=== PATIENT | female | born 1940 | race Caucasian/White ===

== ENCOUNTER 2016-07-11 09:37 | Inpatient (IN) | payer OTHER ==
[~2016-07-11] VITALS: Ht 154.9 cm; Wt 118.8 kg
[~2016-07-11 09:37] MED LIST: CLEOCIN300 MG PO; DOXYCYCLINE HY100 MG PO; FLEXERIL10 MG PO; HCTZ; HYDROCHLOROTHIA25 MG PO; HYDROCHLOROTHIA50 MG; HYDROCODON-ACE1 EACH; LASIX40 MG PO; LISINOPRIL20 MG PO; METOPROLOL TART50 MG PO; NAPROSYN500 MG; NEOSPORIN + P14.2 GM TP; NEXIUM40 MG PO; NORVASC10 MG PO; TOPROL XL50 MG PO; TRAMADOL HCL50 MG PO; ULTRAM50 MG PO; VALACYCLOVIR1000 MG; VICODIN 5-3001 EACH PO
[2016-07-11 12:51] LABS: HEMATOCRIT 29.1 % (36.0-46.0); MCH 24.1 PG (29.0-34.0); MCHC 32.3 G/DL (30.0-36.0); MCV 74.6 FL (83-99); MEAN PLAT.VOLUME 10.1 uM^3 (9.5-12.4); PLATELET COUNT 397 K/uL (156-360); RBC DIS.WIDTH-CV 17.9 % (11.8-14.6); RBC DIS.WIDTH-SD 46.9 % (39-53); WHITE BLOOD COUNT 15.5 K/uL (4.1-10.2)
[2016-07-11 13:01] LABS: INTER. NORMALIZED RATIO 1.1; PROTHROMBIN TIME 11.2 (9.2-11.2); PTT 33.6 (25-32)
[2016-07-11 13:02] LABS: CHLORIDE 109 mEq/L (99-109); POTASSIUM 4.8 mEq/L (3.7-5.4); SODIUM 138 mEq/L (136-147)
[2016-07-11 13:04] LABS: GLUCOSE 70 mg/dL (70-99)
[2016-07-11 13:05] LABS: ANION GAP 12 MEQ/L (2-14)
[2016-07-11 13:08] LABS: GFR ESTIMATE (CALCULATED) 31 mL/min/
[2016-07-11 13:09] LABS: UREA NITROGEN (BUN) 33 mg/dL (9-23)
[2016-07-11] MEDS ORDERED: LISINOPRIL10 MG PO (15:13)
[2016-07-11] MEDS ORDERED: HYDROCHLOROTHIA25 MG PO (15:14)
[2016-07-11] MEDS ORDERED: TRAMADOL HCL50 MG PO (15:15)
[2016-07-11] MEDS ORDERED: NEXIUM40 MG PO (15:15)
[2016-07-11] MEDS ORDERED: CLARITIN,ALAVAR10 MG PO (15:16)
[2016-07-11] MEDS ORDERED: FLUTICASONE PRO16 GM BOTH NARES (15:16)
[2016-07-11 21:32] VITALS: BP 127/88
[2016-07-12 03:12] LABS: ADD MIUA? YES; BILIRUBIN NEGATIVE; BLOOD TRACE; COLOR YELLOW ((YELLOW)); GLUCOSE (STRIP) NEGATIVE; KETONES NEGATIVE; LEUKOCYTES TRACE; NITRITE NEGATIVE; PROTEIN (STRIP) 30; SPECIFIC GRAVITY 1.014 (1.000-1.030); UROBILINOGEN 0.2 MG/DL (0.2-1.0)
[2016-07-12 03:39] LABS: RED BLOOD CELLS 0-5 /HPF (0-5); WHITE BLOOD CELLS 0-5 /HPF (0-5)
[2016-07-12 03:40] LABS: BACTERIA NONE SEEN; CASTS NONE SEEN /LPF; CRYSTALS NONE SEEN; EPITHELIAL CELLS 1+; MUCUS 1+; UCUL ADDED? NO
[2016-07-12 04:01] VITALS: BP 132/87
[2016-07-12 06:17] LABS: HEMATOCRIT 29.4 % (36.0-46.0); MCH 23.5 PG (29.0-34.0); MCHC 31.3 G/DL (30.0-36.0); MCV 75.2 FL (83-99); MEAN PLAT.VOLUME 9.8 uM^3 (9.5-12.4); PLATELET COUNT 394 K/uL (156-360); RBC DIS.WIDTH-CV 17.6 % (11.8-14.6); RBC DIS.WIDTH-SD 47.7 % (39-53); RED BLOOD COUNT 3.91 M/uL (3.80-5.20); WHITE BLOOD COUNT 14.8 K/uL (4.1-10.2)
[2016-07-12 06:21] LABS: EOSINOPHIL COUNT 0.3 K/uL (0-0.3); IMMATURE GRANULOCYTE (%) 0.3 % (0.0-0.7); IMMATURE GRANULOCYTE COUNT 0.1 K/uL; LYMPHOCYTE COUNT 1.5 K/uL (1.0-2.8); MONOCYTE (%) 9.1 % (3-12); MONOCYTE COUNT 1.4 K/uL (0-0.8); NEUTROPHIL COUNT 11.5 K/uL (1.8-6.4)
[2016-07-12 06:42] LABS: Estimated Average Glucose 123 mg/dL (70-123); HEMOGLOBIN A1c (GLYCOHEMOGLOB) 5.9 % HGB (Below 5.7)
[2016-07-12 06:45] LABS: ANION GAP 15 MEQ/L (2-14); CHLORIDE 105 MEQ/L (99-109); GFR ESTIMATE (CALCULATED) 36 mL/min/; GLUCOSE 62 mg/dL (70-99); POTASSIUM 4.7 MEQ/L (3.7-5.4); SAMPLE HEMOLYSIS CHECK 0; SAMPLE ICTERIC CHECK 0; SAMPLE LIPEMIA CHECK 0; SODIUM 140 MEQ/L (136-147); UREA NITROGEN (BUN) 27 mg/dL (9-23)
[2016-07-12 08:46] VITALS: BP 143/92
[2016-07-12 12:37] LABS: VANCOMYCIN, TROUGH 7.5 MCG/ML (10-20)
[2016-07-12 13:03] VITALS: BP 180/76
[2016-07-12 17:37] VITALS: BP 129/72
[2016-07-12 20:41] VITALS: BP 168/80
[2016-07-13 00:24] VITALS: BP 177/77
[2016-07-13 04:00] VITALS: BP 160/72
[2016-07-13 08:59] VITALS: BP 175/76
[2016-07-13 15:30] VITALS: BP 135/96
[2016-07-13 23:36] VITALS: BP 138/76
[2016-07-14 07:14] VITALS: BP 182/86
[2016-07-14 12:07] VITALS: BP 202/96
[2016-07-14 13:41] VITALS: BP 148/92
[2016-07-14 16:14] VITALS: BP 172/86
[2016-07-14 23:46] VITALS: BP 176/80
[2016-07-15 06:01] LABS: HEMATOCRIT 26.2 % (36.0-46.0); MCH 23.1 PG (29.0-34.0); MCHC 30.9 G/DL (30.0-36.0); MCV 74.9 FL (83-99); MEAN PLAT.VOLUME 9.7 uM^3 (9.5-12.4); PLATELET COUNT 341 K/uL (156-360); RBC DIS.WIDTH-CV 17.9 % (11.8-14.6); RBC DIS.WIDTH-SD 48.9 % (39-53); WHITE BLOOD COUNT 12.3 K/uL (4.1-10.2)
[2016-07-15 07:24] LABS: ANION GAP 12 MEQ/L (2-14); CHLORIDE 113 MEQ/L (99-109); GFR ESTIMATE (CALCULATED) 33 mL/min/; SAMPLE HEMOLYSIS CHECK 0; SAMPLE ICTERIC CHECK 0; SAMPLE LIPEMIA CHECK 0; SODIUM 140 MEQ/L (136-147); UREA NITROGEN (BUN) 19 mg/dL (9-23)
[2016-07-15 07:25] LABS: GLUCOSE 83 mg/dL (70-99)
[2016-07-15 08:36] VITALS: BP 160/80
[2016-07-15 16:40] VITALS: BP 158/82
[2016-07-15 23:37] VITALS: BP 184/90
[2016-07-16 06:00] LABS: HEMATOCRIT 26.2 % (36.0-46.0); MCH 23.3 PG (29.0-34.0); MCHC 30.9 G/DL (30.0-36.0); MCV 75.3 FL (83-99); MEAN PLAT.VOLUME 10.5 uM^3 (9.5-12.4); PLATELET COUNT 328 K/uL (156-360); RBC DIS.WIDTH-CV 18.2 % (11.8-14.6); RBC DIS.WIDTH-SD 49.3 % (39-53); RED BLOOD COUNT 3.48 M/uL (3.80-5.20); WHITE BLOOD COUNT 12.1 K/uL (4.1-10.2)
[2016-07-16 06:21] LABS: ANION GAP 9 MEQ/L (2-14); CHLORIDE 113 MEQ/L (99-109); GFR ESTIMATE (CALCULATED) 36 mL/min/; GLUCOSE 89 mg/dL (70-99); POTASSIUM 3.8 MEQ/L (3.7-5.4); SAMPLE HEMOLYSIS CHECK 1; SAMPLE ICTERIC CHECK 0; SAMPLE LIPEMIA CHECK 0; SODIUM 140 MEQ/L (136-147); UREA NITROGEN (BUN) 19 mg/dL (9-23)
[2016-07-16 12:06] VITALS: BP 158/78
[2016-07-17] VITALS: BP 158/96
[2016-07-17 06:27] LABS: HEMATOCRIT 25.8 % (36.0-46.0); MCH 23.5 PG (29.0-34.0); MCHC 31.4 G/DL (30.0-36.0); MCV 74.8 FL (83-99); MEAN PLAT.VOLUME 9.7 uM^3 (9.5-12.4); PLATELET COUNT 365 K/uL (156-360); RBC DIS.WIDTH-CV 18.4 % (11.8-14.6); RBC DIS.WIDTH-SD 49.7 % (39-53); RED BLOOD COUNT 3.45 M/uL (3.80-5.20); WHITE BLOOD COUNT 11.9 K/uL (4.1-10.2)
[2016-07-17 06:59] LABS: ANION GAP 13 MEQ/L (2-14); CHLORIDE 112 MEQ/L (99-109); GFR ESTIMATE (CALCULATED) 42 mL/min/; GLUCOSE 72 mg/dL (70-99); POTASSIUM 4.3 MEQ/L (3.7-5.4); SAMPLE HEMOLYSIS CHECK 0; SAMPLE ICTERIC CHECK 0; SAMPLE LIPEMIA CHECK 0; SODIUM 142 MEQ/L (136-147); UREA NITROGEN (BUN) 19 mg/dL (9-23)
[2016-07-17 07:48] VITALS: BP 137/95
[2016-07-17 20:15] VITALS: BP 183/93
[2016-07-18 00:39] VITALS: BP 186/89
[2016-07-18 04:30] VITALS: BP 122/65
[2016-07-18 04:55] VITALS: BP 189/62
[2016-07-18 05:57] VITALS: BP 126/60
[2016-07-18 05:58] LABS: ANION GAP 9 MEQ/L (2-14); CHLORIDE 112 MEQ/L (99-109); GFR ESTIMATE (CALCULATED) 39 mL/min/; GLUCOSE 87 mg/dL (70-99); POTASSIUM 3.8 MEQ/L (3.7-5.4); SAMPLE HEMOLYSIS CHECK 0; SAMPLE ICTERIC CHECK 0; SAMPLE LIPEMIA CHECK 0; SODIUM 139 MEQ/L (136-147); UREA NITROGEN (BUN) 19 mg/dL (9-23)
[2016-07-18 07:22] VITALS: BP 172/74
[2016-07-18 16:58] VITALS: BP 162/74
[2016-07-19] VITALS (7 sets, daily range): BP systolic 168–202; BP diastolic 72–100
[2016-07-19 06:30] LABS: HEMATOCRIT 26.4 % (36.0-46.0); MCH 23.7 PG (29.0-34.0); MCHC 31.1 G/DL (30.0-36.0); MCV 76.3 FL (83-99); MEAN PLAT.VOLUME 10.4 uM^3 (9.5-12.4); PLATELET COUNT 358 K/uL (156-360); RBC DIS.WIDTH-CV 19.1 % (11.8-14.6); RBC DIS.WIDTH-SD 51.8 % (39-53); RED BLOOD COUNT 3.46 M/uL (3.80-5.20); WHITE BLOOD COUNT 11.1 K/uL (4.1-10.2)
[2016-07-19 07:58] LABS: ANION GAP 13 MEQ/L (2-14); CHLORIDE 115 MEQ/L (99-109); GFR ESTIMATE (CALCULATED) 39 mL/min/; GLUCOSE 71 mg/dL (70-99); POTASSIUM 4.1 MEQ/L (3.7-5.4); SAMPLE HEMOLYSIS CHECK 0; SAMPLE ICTERIC CHECK 0; SAMPLE LIPEMIA CHECK 0; SODIUM 143 MEQ/L (136-147); UREA NITROGEN (BUN) 19 mg/dL (9-23)
[2016-07-19 15:59] LABS: ANION GAP 9 MEQ/L (2-14); CHLORIDE 114 MEQ/L (99-109); POTASSIUM 3.8 MEQ/L (3.7-5.4); SAMPLE HEMOLYSIS CHECK 0; SAMPLE ICTERIC CHECK 0; SAMPLE LIPEMIA CHECK 0; SODIUM 141 MEQ/L (136-147)
[2016-07-19 16:05] LABS: GFR ESTIMATE (CALCULATED) 42 mL/min/; GLUCOSE 86 mg/dL (70-99); UREA NITROGEN (BUN) 17 mg/dL (9-23)
[2016-07-19 16:09] LABS: TROP-I INTERPRETATION NEGATIVE; TROPONIN-I 0.05 ng/mL (0.0-0.30)
[2016-07-19 16:23] LABS: MCH 23.4 PG (29.0-34.0); MCV 75.5 FL (83-99); MEAN PLAT.VOLUME 9.7 uM^3 (9.5-12.4); PLATELET COUNT 351 K/uL (156-360); RBC DIS.WIDTH-SD 51.9 % (39-53); RED BLOOD COUNT 2.78 M/uL (3.80-5.20); WHITE BLOOD COUNT 10.4 K/uL (4.1-10.2)
[2016-07-19 16:54] LABS: BASOPHIL COUNT 0.1 K/uL (0-0.1); EOSINOPHIL (%) 6.9 % (0-5); EOSINOPHIL COUNT 0.7 K/uL (0-0.3); HEMATOLOGY COMMENT 1 SMEAR COMPATIBLE; IMMATURE GRANULOCYTE (%) 0.4 % (0.0-0.7); MONOCYTE (%) 12.3 % (3-12); MONOCYTE COUNT 1.3 K/uL (0-0.8); NEUTROPHIL COUNT 6.3 K/uL (1.8-6.4); PLAT.SUFFICIENCY ADEQUATE; USER ID NPD
[2016-07-20 00:02] VITALS: BP 160/88
[2016-07-20 04:24] VITALS: BP 154/70
[2016-07-20 07:05] LABS: MCHC 32.4 G/DL (30.0-36.0); MEAN PLAT.VOLUME 9.9 uM^3 (9.5-12.4); PLATELET COUNT 334 K/uL (156-360); RBC DIS.WIDTH-CV 19.3 % (11.8-14.6); RBC DIS.WIDTH-SD 56.5 % (39-53); WHITE BLOOD COUNT 12.3 K/uL (4.1-10.2)
[2016-07-20 07:15] LABS: MCV 80.3 FL (83-99); RED BLOOD COUNT 3.61 M/uL (3.80-5.20)
[2016-07-20 07:23] LABS: ANION GAP 10 MEQ/L (2-14); CHLORIDE 115 MEQ/L (99-109); GFR ESTIMATE (CALCULATED) 42 mL/min/; GLUCOSE 73 mg/dL (70-99); POTASSIUM 4.2 MEQ/L (3.7-5.4); SAMPLE HEMOLYSIS CHECK 0; SAMPLE ICTERIC CHECK 0; SAMPLE LIPEMIA CHECK 0; SODIUM 141 MEQ/L (136-147); UREA NITROGEN (BUN) 16 mg/dL (9-23)
[2016-07-20 07:42] LABS: TROP-I INTERPRETATION NEGATIVE; TROPONIN-I 0.07 ng/mL (0.0-0.30)
[2016-07-20 08:12] VITALS: BP 179/93
[2016-07-20 10:34] LABS: BASOPHIL COUNT 0.1 K/uL (0-0.1); EOSINOPHIL (%) 8.7 % (0-5); EOSINOPHIL COUNT 1.1 K/uL (0-0.3); HEMATOLOGY COMMENT 1 SMEAR COMPATIBLE; IMMATURE GRANULOCYTE (%) 0.3 % (0.0-0.7); LYMPHOCYTE COUNT 2.2 K/uL (1.0-2.8); MONOCYTE (%) 13.1 % (3-12); MONOCYTE COUNT 1.6 K/uL (0-0.8); NEUTROPHIL (%) 59.3 % (45-76); NEUTROPHIL COUNT 7.3 K/uL (1.8-6.4); USER ID STC
[2016-07-20 15:24] VITALS: BP 176/98
[2016-07-20 23:47] VITALS: BP 160/72
[2016-07-21 06:51] LABS: MCH 26.1 PG (29.0-34.0); MCHC 32.6 G/DL (30.0-36.0); MCV 80.1 FL (83-99); MEAN PLAT.VOLUME 9.5 uM^3 (9.5-12.4); PLATELET COUNT 310 K/uL (156-360); RBC DIS.WIDTH-CV 19.6 % (11.8-14.6); RBC DIS.WIDTH-SD 57.2 % (39-53); RED BLOOD COUNT 3.37 M/uL (3.80-5.20); WHITE BLOOD COUNT 10.8 K/uL (4.1-10.2)
[2016-07-21 06:57] LABS: EOSINOPHIL (%) 6.7 % (0-5); EOSINOPHIL COUNT 0.7 K/uL (0-0.3); IMMATURE GRANULOCYTE (%) 0.2 % (0.0-0.7); LYMPHOCYTE COUNT 1.3 K/uL (1.0-2.8); MONOCYTE (%) 13.7 % (3-12); MONOCYTE COUNT 1.5 K/uL (0-0.8); NEUTROPHIL (%) 66.8 % (45-76); NEUTROPHIL COUNT 7.2 K/uL (1.8-6.4)
[2016-07-21 07:37] VITALS: BP 192/93
[2016-07-21 08:07] LABS: HEMATOLOGY COMMENT 1 SMEAR COMPATIBLE; USER ID CL
[2016-07-21 08:27] LABS: ANION GAP 12 MEQ/L (2-14); CHLORIDE 112 MEQ/L (99-109); GFR ESTIMATE (CALCULATED) 46 mL/min/; GLUCOSE 89 mg/dL (70-99); POTASSIUM 4.4 MEQ/L (3.7-5.4); SAMPLE HEMOLYSIS CHECK 0; SAMPLE ICTERIC CHECK 0; SAMPLE LIPEMIA CHECK 0; SODIUM 140 MEQ/L (136-147); UREA NITROGEN (BUN) 17 mg/dL (9-23)
[2016-07-21 16:31] VITALS: BP 220/104
[2016-07-22 00:11] VITALS: BP 187/81
[2016-07-22 06:14] LABS: HEMATOCRIT 26.4 % (36.0-46.0); MCH 26.1 PG (29.0-34.0); MCHC 32.2 G/DL (30.0-36.0); PLATELET COUNT 349 K/uL (156-360); RBC DIS.WIDTH-CV 20.2 % (11.8-14.6); RBC DIS.WIDTH-SD 59.9 % (39-53); RED BLOOD COUNT 3.26 M/uL (3.80-5.20); WHITE BLOOD COUNT 11.1 K/uL (4.1-10.2)
[2016-07-22 06:39] LABS: ANION GAP 9 MEQ/L (2-14); CHLORIDE 112 MEQ/L (99-109); GFR ESTIMATE (CALCULATED) 36 mL/min/; GLUCOSE 82 mg/dL (70-99); SAMPLE HEMOLYSIS CHECK 0; SAMPLE ICTERIC CHECK 0; SAMPLE LIPEMIA CHECK 0; SODIUM 140 MEQ/L (136-147); UREA NITROGEN (BUN) 22 mg/dL (9-23)
[2016-07-22 07:42] VITALS: BP 164/88
[2016-07-22 15:48] VITALS: BP 198/94
[2016-07-22 16:26] VITALS: BP 180/90
[2016-07-22 23:41] VITALS: BP 122/72
[2016-07-23 08:14] VITALS: BP 168/80
[2016-07-23] MEDS ORDERED: HEPARIN SO5000 UNITS SC (12:59)
[2016-07-23] MEDS ORDERED: LOPRESSOR25 MG PO ×3 (12:59→17:27)
[2016-07-23] MEDS ORDERED: Tears Naturale II,Ar LEFT EYE (12:59)
[2016-07-23 16:01] LABS: MCH 25.9 PG (29.0-34.0); MCHC 31.7 G/DL (30.0-36.0); MCV 81.7 FL (83-99); MEAN PLAT.VOLUME 9.9 uM^3 (9.5-12.4); PLATELET COUNT 365 K/uL (156-360); RBC DIS.WIDTH-CV 19.9 % (11.8-14.6); RBC DIS.WIDTH-SD 60.3 % (39-53); RED BLOOD COUNT 3.55 M/uL (3.80-5.20); WHITE BLOOD COUNT 10.1 K/uL (4.1-10.2)
[2016-07-23 16:30] VITALS: BP 198/92
[2016-07-23] MEDS ORDERED: LISINOPRIL10 MG PO (17:21)
[2016-07-23 19:56] VITALS: BP 158/74
[2016-07-23 20:41] LABS: TROP-I INTERPRETATION NEGATIVE; TROPONIN-I 0.04 ng/mL (0.0-0.30)
[2016-07-23 23:39] VITALS: BP 160/79
[2016-07-24 08:18] VITALS: BP 180/90
[2016-07-24 14:18] VITALS: BP 168/84
== END 2016-07-24 15:32 | DRG 240 ==
LOC: EME 09:37 → EDOF 14:08 → 3EAST 14:08
PROVIDERS: Hospitalist; Internal Medicine; Physician Assistant; Physician Assistant Medical; Student in an Organized Health Care Education/Training Program; Surgery
PROC: 047L3DZ Dilation of Left Femoral Artery with Intraluminal Device, Percutaneous Approach (ICD-10-PCS; principal; 2016-07-17)
PROC: 0Y6J0Z1 Detachment at Left Lower Leg, High, Open Approach (ICD-10-PCS; 2016-07-19)
PROC: 30233N1 Transfusion of Nonautologous Red Blood Cells into Peripheral Vein, Percutaneous Approach (ICD-10-PCS; 2016-07-19)
DX: I70.242 Atherosclerosis of native arteries of left leg with ulceration of calf (principal); R78.81 Bacteremia; L03.116 Cellulitis of left lower limb; D62 Acute posthemorrhagic anemia; L97.223 Non-pressure chronic ulcer of left calf with necrosis of muscle; B95.62 Methicillin resistant Staphylococcus aureus infection as the cause of diseases classified elsewhere; I70.245 Atherosclerosis of native arteries of left leg with ulceration of other part of foot; L97.521 Non-pressure chronic ulcer of other part of left foot limited to breakdown of skin; R00.1 Bradycardia, unspecified; I12.9 Hypertensive chronic kidney disease with stage 1 through stage 4 chronic kidney disease, or unspecified chronic kidney disease; R07.89 Other chest pain; N18.3 Chronic kidney disease, stage 3 (moderate); D50.9 Iron deficiency anemia, unspecified; K21.9 Gastro-esophageal reflux disease without esophagitis; F41.9 Anxiety disorder, unspecified; M19.90 Unspecified osteoarthritis, unspecified site
CPT/HCPCS: 73590; 80048; 80048 91; 80202; 81003; 82565; 83036; 83605; 84484; 85025; 85027; 85610; 85730; 86850; 86900; 86901; 86920; 87040; 87070; 87075; 87077; 87147; 87186; 87205; 88307; 88311; 93005; 93925; 99281; 99285; C1725; C1760; C1769; C1887; C1894; J0295; J0330; J0360; J1100; J1644; J1885; J2060; J2250; J2405; J2543; J3010; J3370; J7030; J7050; J7120; P9016; S0020

== ENCOUNTER 2016-11-06 10:16 | Inpatient (IN) | payer OTHER ==
[~2016-11-06] VITALS: Ht 160 cm; Wt 50.8 kg
[~2016-11-06 10:16] MED LIST changes: +CLARITIN,ALAVAR10 MG PO; +FLUTICASONE PRO16 GM BOTH NARES; +HEPARIN SO5000 UNITS SC; +LISINOPRIL10 MG PO; +LOPRESSOR25 MG PO; +Tears Naturale II,Ar LEFT EYE
[2016-11-06 11:15] LABS: EOSINOPHIL (%) 0 % (0-5); HEMATOCRIT 39.7 % (36.0-46.0); IMMATURE GRANULOCYTE (%) 0.6 % (0.0-0.7); IMMATURE GRANULOCYTE COUNT 0.1 K/uL; LYMPHOCYTE COUNT 2.3 K/uL (1.0-2.8); MCH 26.2 PG (29.0-34.0); MCHC 32.5 G/DL (30.0-36.0); MCV 80.7 FL (83-99); MEAN PLAT.VOLUME 9.8 uM^3 (9.5-12.4); MONOCYTE (%) 7.9 % (3-12); MONOCYTE COUNT 1.5 K/uL (0-0.8); NEUTROPHIL (%) 79.2 % (45-76); PLATELET COUNT 509 K/uL (156-360); RED BLOOD COUNT 4.92 M/uL (3.80-5.20); WHITE BLOOD COUNT 18.9 K/uL (4.1-10.2)
[2016-11-06 11:26] LABS: CHLORIDE 109 mEq/L (99-109); POTASSIUM 5.8 mEq/L (3.7-5.4); SODIUM 140 mEq/L (136-147)
[2016-11-06 11:28] LABS: GLUCOSE 103 mg/dL (70-99)
[2016-11-06 11:29] LABS: ANION GAP 14 MEQ/L (2-14)
[2016-11-06 11:30] LABS: TOTAL BILIRUBIN 0.2 mg/dL (0.0-1.0)
[2016-11-06 11:32] LABS: ALKALINE PHOSPHATASE 66 IU/L (3-129); GFR ESTIMATE (CALCULATED) 33 mL/min/
[2016-11-06 11:33] LABS: UREA NITROGEN (BUN) 49 mg/dL (9-23)
[2016-11-06 13:32] LABS: C DIFF TOXIN NEGATIVE (NEGATIVE)
[2016-11-06 13:33] LABS: PROBE CHECK PASS; SPECIMEN PROCESSING CONTROL PASS
[2016-11-06] MEDS ORDERED: METOPROLOL TART50 MG PO (13:38)
[2016-11-06] MEDS ORDERED: TRAMADOL HCL50 MG PO (13:39)
[2016-11-06] MEDS ORDERED: PERCOCET 5/31 TABLET PO (13:40)
[2016-11-06 14:45] LABS: ADD MIUA? YES; BILIRUBIN NEGATIVE; BLOOD NEGATIVE; COLOR YELLOW ((YELLOW)); GLUCOSE (STRIP) NEGATIVE; KETONES NEGATIVE; LEUKOCYTES NEGATIVE; NITRITE NEGATIVE; PROTEIN (STRIP) 100; SPECIFIC GRAVITY 1.016 (1.000-1.030); UROBILINOGEN 0.2 MG/DL (0.2-1.0)
[2016-11-06 15:23] LABS: BACTERIA RARE /HPF; EPITHELIAL CELLS RARE /HPF; HYALINE CASTS 0-5 /LPF; MUCUS NONE SEEN /LPF; RED BLOOD CELLS 0-5 /HPF (0-5); UCUL ADDED? NO; WHITE BLOOD CELLS 0-5 /HPF (0-5)
[2016-11-06 17:00] VITALS: BP 133/78
[2016-11-06 23:18] VITALS: BP 129/74
[2016-11-07 03:30] VITALS: BP 119/61
[2016-11-07 07:28] LABS: HEMATOCRIT 33.9 % (36.0-46.0); MCH 25.9 PG (29.0-34.0); MCHC 31.3 G/DL (30.0-36.0); MCV 82.7 FL (83-99); MEAN PLAT.VOLUME 10.3 uM^3 (9.5-12.4); PLATELET COUNT 364 K/uL (156-360); RBC DIS.WIDTH-CV 16.6 % (11.8-14.6); RBC DIS.WIDTH-SD 49.3 % (39-53)
[2016-11-07 07:34] LABS: ANION GAP 6 MEQ/L (2-14); CHLORIDE 112 MEQ/L (99-109); GFR ESTIMATE (CALCULATED) 39 mL/min/; GLUCOSE 76 mg/dL (70-99); SAMPLE HEMOLYSIS CHECK 0; SAMPLE ICTERIC CHECK 0; SAMPLE LIPEMIA CHECK 0; SODIUM 140 MEQ/L (136-147); UREA NITROGEN (BUN) 42 mg/dL (9-23)
[2016-11-07 07:43] LABS: WHITE BLOOD COUNT 12.6 K/uL (4.1-10.2)
[2016-11-07 07:47] LABS: POTASSIUM 4.6 MEQ/L (3.7-5.4)
[2016-11-07 08:22] VITALS: BP 152/84
[2016-11-07 11:37] LABS: D-DIMER ELISA 1.88 mg/L FEU (< 0.57)
[2016-11-07 15:43] VITALS: BP 144/108
[2016-11-07 19:28] VITALS: BP 150/98
[2016-11-07 23:33] VITALS: BP 170/70
[2016-11-08 03:30] VITALS: BP 151/76
[2016-11-08 06:20] LABS: BASOPHIL COUNT 0.1 K/uL (0-0.1); EOSINOPHIL (%) 2.5 % (0-5); EOSINOPHIL COUNT 0.3 K/uL (0-0.3); HEMATOCRIT 33.7 % (36.0-46.0); IMMATURE GRANULOCYTE (%) 0.5 % (0.0-0.7); IMMATURE GRANULOCYTE COUNT 0.1 K/uL; INSTRUMENT ABS NEUTROPHIL CT 7.6 K/uL; MCH 25.9 PG (29.0-34.0); MCHC 31.5 G/DL (30.0-36.0); MCV 82.2 FL (83-99); MEAN PLAT.VOLUME 10.3 uM^3 (9.5-12.4); MONOCYTE (%) 9.7 % (3-12); MONOCYTE COUNT 1.2 K/uL (0-0.8); NEUTROPHIL (%) 62.3 % (45-76); NEUTROPHIL COUNT 7.6 K/uL (1.8-6.4); PLATELET COUNT 370 K/uL (156-360); RBC DIS.WIDTH-CV 16.7 % (11.8-14.6); RBC DIS.WIDTH-SD 49.3 % (39-53); WHITE BLOOD COUNT 12.2 K/uL (4.1-10.2)
[2016-11-08 06:42] LABS: ALKALINE PHOSPHATASE 49 IU/L (3-129); ANION GAP 9 MEQ/L (2-14); CHLORIDE 108 MEQ/L (99-109); GFR ESTIMATE (CALCULATED) 46 mL/min/; GLUCOSE 87 mg/dL (70-99); POTASSIUM 4.6 MEQ/L (3.7-5.4); SAMPLE HEMOLYSIS CHECK 0; SAMPLE ICTERIC CHECK 0; SAMPLE LIPEMIA CHECK 0; SODIUM 139 MEQ/L (136-147); TOTAL BILIRUBIN 0.2 MG/DL (0.0-1.0); UREA NITROGEN (BUN) 33 mg/dL (9-23)
[2016-11-08 06:45] VITALS: BP 180/70
[2016-11-08 11:06] VITALS: BP 138/85
[2016-11-08 15:03] VITALS: BP 127/77
[2016-11-09 00:01] VITALS: BP 136/78
[2016-11-09 03:37] VITALS: BP 118/68
[2016-11-09 08:10] LABS: EOSINOPHIL COUNT 0.2 K/uL (0-0.3); HEMATOCRIT 33.9 % (36.0-46.0); IMMATURE GRANULOCYTE (%) 0.5 % (0.0-0.7); IMMATURE GRANULOCYTE COUNT 0.1 K/uL; INSTRUMENT ABS NEUTROPHIL CT 5.6 K/uL; LYMPHOCYTE COUNT 2.9 K/uL (1.0-2.8); MCH 25.8 PG (29.0-34.0); MCHC 31.6 G/DL (30.0-36.0); MCV 81.9 FL (83-99); MEAN PLAT.VOLUME 9.8 uM^3 (9.5-12.4); MONOCYTE (%) 11.5 % (3-12); MONOCYTE COUNT 1.2 K/uL (0-0.8); NEUTROPHIL (%) 56.5 % (45-76); NEUTROPHIL COUNT 5.6 K/uL (1.8-6.4); PLATELET COUNT 336 K/uL (156-360); RBC DIS.WIDTH-CV 16.6 % (11.8-14.6); RBC DIS.WIDTH-SD 48.9 % (39-53); RED BLOOD COUNT 4.14 M/uL (3.80-5.20)
[2016-11-09 08:50] LABS: ALKALINE PHOSPHATASE 50 IU/L (3-129); ANION GAP 5 MEQ/L (2-14); CHLORIDE 105 MEQ/L (99-109); GFR ESTIMATE (CALCULATED) 51 mL/min/; GLUCOSE 71 mg/dL (70-99); POTASSIUM 4.2 MEQ/L (3.7-5.4); SAMPLE HEMOLYSIS CHECK 0; SAMPLE ICTERIC CHECK 0; SAMPLE LIPEMIA CHECK 0; SODIUM 135 MEQ/L (136-147); UREA NITROGEN (BUN) 29 mg/dL (9-23)
[2016-11-09 09:10] LABS: TOTAL BILIRUBIN 0.3 MG/DL (0.0-1.0)
[2016-11-09 16:15] VITALS: BP 158/94
[2016-11-09 20:00] VITALS: BP 138/71
[2016-11-10 00:42] VITALS: BP 124/61
[2016-11-10 04:07] VITALS: BP 109/58
[2016-11-10 06:18] LABS: EOSINOPHIL (%) 2.8 % (0-5); EOSINOPHIL COUNT 0.3 K/uL (0-0.3); HEMATOCRIT 35.5 % (36.0-46.0); IMMATURE GRANULOCYTE (%) 0.4 % (0.0-0.7); INSTRUMENT ABS NEUTROPHIL CT 6.6 K/uL; LYMPHOCYTE COUNT 3.1 K/uL (1.0-2.8); MCH 25.7 PG (29.0-34.0); MCHC 31.5 G/DL (30.0-36.0); MCV 81.4 FL (83-99); MEAN PLAT.VOLUME 10.3 uM^3 (9.5-12.4); MONOCYTE (%) 9.9 % (3-12); MONOCYTE COUNT 1.1 K/uL (0-0.8); NEUTROPHIL (%) 58.8 % (45-76); NEUTROPHIL COUNT 6.6 K/uL (1.8-6.4); PLATELET COUNT 361 K/uL (156-360); RBC DIS.WIDTH-CV 16.4 % (11.8-14.6); RBC DIS.WIDTH-SD 48.7 % (39-53); RED BLOOD COUNT 4.36 M/uL (3.80-5.20); WHITE BLOOD COUNT 11.2 K/uL (4.1-10.2)
[2016-11-10 06:51] LABS: ALKALINE PHOSPHATASE 52 IU/L (3-129); ANION GAP 5 MEQ/L (2-14); CHLORIDE 103 MEQ/L (99-109); GFR ESTIMATE (CALCULATED) 46 mL/min/; GLUCOSE 85 mg/dL (70-99); SAMPLE HEMOLYSIS CHECK 3; SAMPLE ICTERIC CHECK 0; SAMPLE LIPEMIA CHECK 0; SODIUM 133 MEQ/L (136-147); UREA NITROGEN (BUN) 30 mg/dL (9-23)
[2016-11-10 07:57] LABS: NO-CHARGE AST (GOT) 10 IU/L (15-37); POTASSIUM 4.3 MEQ/L (3.7-5.4); TOTAL BILIRUBIN 0.3 MG/DL (0.0-1.0)
[2016-11-10 10:54] VITALS: BP 149/69
[2016-11-10 16:55] VITALS: BP 141/74
[2016-11-10 19:23] VITALS: BP 144/69
[2016-11-10 22:37] VITALS: BP 153/68
[2016-11-11 07:10] VITALS: BP 118/68
[2016-11-11 07:38] LABS: BASOPHIL COUNT 0.1 K/uL (0-0.1); EOSINOPHIL (%) 3.1 % (0-5); EOSINOPHIL COUNT 0.3 K/uL (0-0.3); IMMATURE GRANULOCYTE (%) 0.2 % (0.0-0.7); INSTRUMENT ABS NEUTROPHIL CT 5.8 K/uL; LYMPHOCYTE COUNT 2.3 K/uL (1.0-2.8); MCH 25.8 PG (29.0-34.0); MCHC 31.1 G/DL (30.0-36.0); MCV 83.1 FL (83-99); MEAN PLAT.VOLUME 10.2 uM^3 (9.5-12.4); MONOCYTE (%) 9.5 % (3-12); MONOCYTE COUNT 0.9 K/uL (0-0.8); NEUTROPHIL (%) 62.1 % (45-76); NEUTROPHIL COUNT 5.8 K/uL (1.8-6.4); PLATELET COUNT 289 K/uL (156-360); RBC DIS.WIDTH-CV 16.7 % (11.8-14.6); RBC DIS.WIDTH-SD 50.1 % (39-53); RED BLOOD COUNT 4.45 M/uL (3.80-5.20); WHITE BLOOD COUNT 9.3 K/uL (4.1-10.2)
[2016-11-11 08:05] LABS: ALKALINE PHOSPHATASE 49 IU/L (3-129); ANION GAP 7 MEQ/L (2-14); CHLORIDE 106 MEQ/L (99-109); GFR ESTIMATE (CALCULATED) 46 mL/min/; GLUCOSE 77 mg/dL (70-99); POTASSIUM 4.2 MEQ/L (3.7-5.4); SAMPLE HEMOLYSIS CHECK 0; SAMPLE ICTERIC CHECK 0; SAMPLE LIPEMIA CHECK 0; SODIUM 139 MEQ/L (136-147); UREA NITROGEN (BUN) 31 mg/dL (9-23)
[2016-11-11 08:06] LABS: TOTAL BILIRUBIN 0.2 MG/DL (0.0-1.0)
[2016-11-11 15:30] VITALS: BP 123/82
[2016-11-11 23:21] VITALS: BP 135/62
[2016-11-12 06:30] VITALS: BP 172/74
[2016-11-12 06:33] LABS: HEMATOCRIT 29.3 % (36.0-46.0); MCH 26.6 PG (29.0-34.0); MCHC 32.8 G/DL (30.0-36.0); MCV 81.2 FL (83-99); MEAN PLAT.VOLUME 10.2 uM^3 (9.5-12.4); PLATELET COUNT 266 K/uL (156-360); RBC DIS.WIDTH-CV 16.7 % (11.8-14.6); RBC DIS.WIDTH-SD 48.8 % (39-53); RED BLOOD COUNT 3.61 M/uL (3.80-5.20); WHITE BLOOD COUNT 9.2 K/uL (4.1-10.2)
[2016-11-12 07:00] LABS: ANION GAP 9 MEQ/L (2-14); CHLORIDE 106 MEQ/L (99-109); GFR ESTIMATE (CALCULATED) 42 mL/min/; GLUCOSE 82 mg/dL (70-99); POTASSIUM 4.3 MEQ/L (3.7-5.4); SAMPLE HEMOLYSIS CHECK 0; SAMPLE ICTERIC CHECK 0; SAMPLE LIPEMIA CHECK 0; SODIUM 138 MEQ/L (136-147); UREA NITROGEN (BUN) 33 mg/dL (9-23)
[2016-11-12 15:24] VITALS: BP 137/63
[2016-11-12 22:20] VITALS: BP 140/76
[2016-11-12 22:58] VITALS: BP 158/78
[2016-11-12 23:14] VITALS: BP 131/71
[2016-11-13 06:55] LABS: HEMATOCRIT 31.5 % (36.0-46.0); MCH 26.3 PG (29.0-34.0); MCHC 31.4 G/DL (30.0-36.0); MCV 83.6 FL (83-99); MEAN PLAT.VOLUME 10.7 uM^3 (9.5-12.4); PLATELET COUNT 270 K/uL (156-360); RBC DIS.WIDTH-SD 51.5 % (39-53); RED BLOOD COUNT 3.77 M/uL (3.80-5.20); WHITE BLOOD COUNT 9.3 K/uL (4.1-10.2)
[2016-11-13 07:13] LABS: ANION GAP 8 MEQ/L (2-14); CHLORIDE 106 MEQ/L (99-109); GFR ESTIMATE (CALCULATED) 42 mL/min/; GLUCOSE 100 mg/dL (70-99); SAMPLE HEMOLYSIS CHECK 1; SAMPLE ICTERIC CHECK 0; SAMPLE LIPEMIA CHECK 0; SODIUM 139 MEQ/L (136-147); UREA NITROGEN (BUN) 34 mg/dL (9-23)
[2016-11-13 07:17] LABS: POTASSIUM 4.4 MEQ/L (3.7-5.4)
[2016-11-13 08:06] VITALS: BP 151/71
[2016-11-13] MEDS ORDERED: FLUOXETINE HCL10 MG PO (10:56)
== END 2016-11-13 13:25 | disposition home health service (06) | DRG 592 ==
LOC: EME 10:16 → 5EAST 14:13 → EDOF 14:13 → 5EAST 16:20
PROVIDERS: Emergency Medicine; Hospitalist; Internal Medicine; Nurse Practitioner Family
DX: L89.320 Pressure ulcer of left buttock, unstageable (principal); J96.01 Acute respiratory failure with hypoxia; L89.310 Pressure ulcer of right buttock, unstageable; L89.150 Pressure ulcer of sacral region, unstageable; E86.0 Dehydration; E87.5 Hyperkalemia; N17.9 Acute kidney failure, unspecified; R19.7 Diarrhea, unspecified; I12.9 Hypertensive chronic kidney disease with stage 1 through stage 4 chronic kidney disease, or unspecified chronic kidney disease; N18.3 Chronic kidney disease, stage 3 (moderate); D63.1 Anemia in chronic kidney disease; K21.9 Gastro-esophageal reflux disease without esophagitis; M19.90 Unspecified osteoarthritis, unspecified site; I73.00 Raynaud's syndrome without gangrene; Z91.14 Patient's other noncompliance with medication regimen; Z89.512 Acquired absence of left leg below knee; Z88.2 Allergy status to sulfonamides; Z86.14 Personal history of Methicillin resistant Staphylococcus aureus infection; F32.9 Major depressive disorder, single episode, unspecified
CPT/HCPCS: 71010; 74176; 78582; 80048; 80053; 81003; 83605; 84999; 85025; 85027; 85379; 87040; 87070; 87075; 87205; 87493; 87506; 93005; 94799; 99202; 99281; 99285; A9567; J1170; J1644; J3370; J7030; J7050

== ENCOUNTER 2017-04-30 12:15 | Emergency (ER) | payer OTHER ==
[~2017-04-30] VITALS: Ht 162.6 cm; Wt 59.3 kg
[~2017-04-30 12:15] MED LIST changes: +FLUOXETINE HCL10 MG PO; +PERCOCET 5/31 TABLET PO
[2017-04-30 14:25] VITALS: BP 152/87
== END 2017-04-30 14:26 | disposition home or self-care (01) ==
LOC: EME 12:15
PROC: 0HQLXZZ Repair Left Lower Leg Skin, External Approach (ICD-10-PCS; principal; 2017-04-30)
DX: S81.812A Laceration without foreign body, left lower leg, initial encounter (principal); W05.0XXA Fall from non-moving wheelchair, initial encounter; Z89.512 Acquired absence of left leg below knee; I10 Essential (primary) hypertension
CPT/HCPCS: 99281; 99283

== ENCOUNTER 2017-05-09 17:34 | Observation (INO) | payer OTHER ==
[~2017-05-09] VITALS: Ht 162.6 cm; Wt 55.4 kg
[2017-05-09 20:11] LABS: BASOPHIL COUNT 0.1 K/uL (0-0.1); EOSINOPHIL (%) 3.4 % (0-5); EOSINOPHIL COUNT 0.4 K/uL (0-0.3); HEMATOCRIT 33.8 % (36.0-46.0); IMMATURE GRANULOCYTE (%) 0.3 % (0.0-0.7); INSTRUMENT ABS NEUTROPHIL CT 7.3 K/uL; LYMPHOCYTE COUNT 2.9 K/uL (1.0-2.8); MCH 24.3 PG (29.0-34.0); MCHC 30.8 G/DL (30.0-36.0); MEAN PLAT.VOLUME 9.5 uM^3 (9.5-12.4); MONOCYTE COUNT 0.8 K/uL (0-0.8); NEUTROPHIL (%) 63.7 % (45-76); NEUTROPHIL COUNT 7.3 K/uL (1.8-6.4); PLATELET COUNT 347 K/uL (156-360); RBC DIS.WIDTH-CV 16.4 % (11.8-14.6); RBC DIS.WIDTH-SD 46.5 % (39-53); RED BLOOD COUNT 4.28 M/uL (3.80-5.20); WHITE BLOOD COUNT 11.5 K/uL (4.1-10.2)
[2017-05-09 20:22] LABS: CHLORIDE 108 mEq/L (99-109); POTASSIUM 4.5 mEq/L (3.7-5.4); SODIUM 140 mEq/L (136-147)
[2017-05-09 20:24] LABS: GLUCOSE 87 mg/dL (70-99)
[2017-05-09 20:26] LABS: ANION GAP 14 MEQ/L (2-14)
[2017-05-09 20:28] LABS: GFR ESTIMATE (CALCULATED) 33 mL/min/
[2017-05-09 20:29] LABS: UREA NITROGEN (BUN) 41 mg/dL (9-23)
[2017-05-09 20:35] LABS: TROP-I INTERPRETATION NEGATIVE; TROPONIN-I 0.03 ng/mL (0.0-0.30)
[2017-05-09] MEDS ORDERED: RANITIDINE HCL150 MG PO (21:17)
[2017-05-09] MEDS ORDERED: OXYBUTYNIN CHLO10 MG PO (21:17)
[2017-05-09 22:46] LABS: INFLUENZA A VIRAL ANTIGEN NEGATIVE; INFLUENZA B VIRAL ANTIGEN NEGATIVE
[2017-05-10 00:19] VITALS: BP 176/81
[2017-05-10 03:34] VITALS: BP 177/104
[2017-05-10 03:42] LABS: TROP-I INTERPRETATION NEGATIVE; TROPONIN-I 0.03 ng/mL (0.0-0.30)
[2017-05-10 07:50] VITALS: BP 140/80
[2017-05-10 09:50] LABS: HEMATOCRIT 28.2 % (36.0-46.0); MCH 23.9 PG (29.0-34.0); MCHC 30.1 G/DL (30.0-36.0); MCV 79.2 FL (83-99); PLATELET COUNT 297 K/uL (156-360); RBC DIS.WIDTH-CV 16.2 % (11.8-14.6); RBC DIS.WIDTH-SD 46.7 % (39-53); RED BLOOD COUNT 3.56 M/uL (3.80-5.20); WHITE BLOOD COUNT 11.1 K/uL (4.1-10.2)
[2017-05-10 10:06] LABS: TROP-I INTERPRETATION NEGATIVE; TROPONIN-I 0.03 ng/mL (0.0-0.30)
[2017-05-10 10:17] LABS: ALKALINE PHOSPHATASE 63 IU/L (3-129); ANION GAP 9 MEQ/L (2-14); CHLORIDE 109 MEQ/L (99-109); GFR ESTIMATE (CALCULATED) 36 mL/min/; GLUCOSE 90 mg/dL (70-99); POTASSIUM 3.9 MEQ/L (3.7-5.4); SAMPLE HEMOLYSIS CHECK 0; SAMPLE ICTERIC CHECK 0; SAMPLE LIPEMIA CHECK 0; SODIUM 139 MEQ/L (136-147); TOTAL BILIRUBIN 0.3 MG/DL (0.0-1.0); UREA NITROGEN (BUN) 32 mg/dL (9-23)
[2017-05-10 12:00] VITALS: BP 151/69
[2017-05-10] MEDS ORDERED: AZITHROMYCIN500 M1 PO (14:33)
[2017-05-10] MEDS ORDERED: CEFTIN500 MG PO (14:33)
[2017-05-10] MEDS ORDERED: BENZONATATE100 MG PO (14:34)
== END 2017-05-10 15:43 | disposition home or self-care (01) ==
LOC: EME 17:34 → EDOF 23:01 → ENRESERV 23:05 → 5WEST 23:56 → ENPENDDIS 05-10 → 5WEST 05-10 15:43
PROVIDERS: Emergency Medicine; Physician Assistant Medical
DX: J20.9 Acute bronchitis, unspecified (principal); R07.89 Other chest pain; N17.9 Acute kidney failure, unspecified; S81.812D Laceration without foreign body, left lower leg, subsequent encounter; W19.XXXD Unspecified fall, subsequent encounter; E86.0 Dehydration; I73.9 Peripheral vascular disease, unspecified; I12.9 Hypertensive chronic kidney disease with stage 1 through stage 4 chronic kidney disease, or unspecified chronic kidney disease; N18.3 Chronic kidney disease, stage 3 (moderate); K21.9 Gastro-esophageal reflux disease without esophagitis; M19.90 Unspecified osteoarthritis, unspecified site; R32 Unspecified urinary incontinence; I25.10 Atherosclerotic heart disease of native coronary artery without angina pectoris; K44.9 Diaphragmatic hernia without obstruction or gangrene; H91.93 Unspecified hearing loss, bilateral; K59.09 Other constipation; Z89.512 Acquired absence of left leg below knee
CPT/HCPCS: 71020; 71250; 80048; 80053; 81003; 83605; 84484; 85025; 85027; 87040; 87502; 93005; 94640; 94760; 99202; 99281; 99285; G0378; G8978 CL; G8979 CJ; G8980 GP CL; G8987 GO CM; G8988 GO CL; G8989 GO CM; J0692; J1650; J7050; J7120

== ENCOUNTER 2017-07-11 11:32 | Emergency (ER) | payer OTHER ==
[~2017-07-11] VITALS: Ht 165.1 cm; Wt 52.2 kg
[~2017-07-11 11:32] MED LIST changes: +AZITHROMYCIN500 M1 PO; +BENZONATATE100 MG PO; +CEFTIN500 MG PO; +OXYBUTYNIN CHLO10 MG PO; +RANITIDINE HCL150 MG PO
[2017-07-11 13:52] LABS: BASOPHIL (%) 0.5 % (0-1); BASOPHIL COUNT 0.1 K/uL (0-0.1); EOSINOPHIL (%) 4.1 % (0-5); EOSINOPHIL COUNT 0.4 K/uL (0-0.3); HEMATOCRIT 29.7 % (36.0-46.0); HEMOGLOBIN 9.4 G/DL (11.9-15.5); IMMATURE GRANULOCYTE (%) 0.4 % (0.0-0.7); LYMPHOCYTE (%) 27.7 % (15-42); LYMPHOCYTE COUNT 2.9 K/uL (1.0-2.8); MCHC 31.6 G/DL (30.0-36.0); MCV 75.8 FL (83-99); MONOCYTE (%) 8.9 % (3-12); MONOCYTE COUNT 0.9 K/uL (0-0.8); NEUTROPHIL (%) 58.4 % (45-76); NEUTROPHIL COUNT 6.2 K/uL (1.8-6.4); PLATELET COUNT 379 K/uL (156-360); RBC DIS.WIDTH-CV 15.4 % (11.8-14.6); RBC DIS.WIDTH-SD 41.9 % (39-53); RED BLOOD COUNT 3.92 M/uL (3.80-5.20); WHITE BLOOD COUNT 10.6 K/uL (4.1-10.2)
[2017-07-11 14:01] LABS: CHLORIDE 110 mEq/L (99-109); SODIUM 140 mEq/L (136-147)
[2017-07-11 14:03] LABS: GLUCOSE 102 mg/dL (70-99)
[2017-07-11 14:07] LABS: CREATININE 1.9 mg/dL (0.6-1.3); GFR ESTIMATE (CALCULATED) 27 mL/min/
[2017-07-11 14:08] LABS: UREA NITROGEN (BUN) 41 mg/dL (9-23)
[2017-07-11] MEDS ORDERED: VALIUM5 MG PO (15:01)
[2017-07-11 15:40] VITALS: BP 102/32
== END 2017-07-11 15:41 | disposition home or self-care (01) ==
LOC: EME 11:32
PROVIDERS: Physician Assistant
DX: R51 Headache (principal); M62.830 Muscle spasm of back; I10 Essential (primary) hypertension; K21.9 Gastro-esophageal reflux disease without esophagitis; Z88.2 Allergy status to sulfonamides; Z88.6 Allergy status to analgesic agent
CPT/HCPCS: 70450; 80048; 85025; 99281; 99285

== ENCOUNTER 2017-08-09 20:08 | Inpatient (IN) | payer OTHER ==
[~2017-08-09] VITALS: Ht 162.6 cm; Wt 54.6 kg
[~2017-08-09 20:08] MED LIST changes: -FLUTICASONE PRO16 GM BOTH NARES; +VALIUM5 MG PO
[2017-08-09 21:20] LABS: HEMATOCRIT 17.6 % (36.0-46.0); MCH 23.7 PG (29.0-34.0); MCHC 30.7 G/DL (30.0-36.0); MCV 77.2 FL (83-99); PLATELET COUNT 306 K/uL (156-360); RBC DIS.WIDTH-CV 17.7 % (11.8-14.6); RBC DIS.WIDTH-SD 48.6 % (39-53); WHITE BLOOD COUNT 17.2 K/uL (4.1-10.2)
[2017-08-09 21:22] LABS: HEMOGLOBIN 5.4 G/DL (11.9-15.5); RED BLOOD COUNT 2.28 M/uL (3.80-5.20)
[2017-08-09 21:30] LABS: CHLORIDE 109 mEq/L (99-109); POTASSIUM 4.6 mEq/L (3.7-5.4); SODIUM 134 mEq/L (136-147)
[2017-08-09 21:32] LABS: GLUCOSE 108 mg/dL (70-99); TOTAL PROTEIN 4.7 g/dL (6.4-8.3)
[2017-08-09 21:34] LABS: TOTAL BILIRUBIN 0.1 mg/dL (0.0-1.0)
[2017-08-09 21:36] LABS: ALKALINE PHOSPHATASE 63 IU/L (3-129); CREATININE 1.9 mg/dL (0.6-1.3); GFR ESTIMATE (CALCULATED) 27 mL/min/
[2017-08-09 21:38] LABS: AST (GOT) 11 IU/L (2-34)
[2017-08-09 21:39] LABS: ALT (GPT) 8 IU/L (3-49); LIPASE 43 U/L (1.0-51.0)
[2017-08-09 21:44] LABS: TROP-I INTERPRETATION NEGATIVE; TROPONIN-I 0.03 ng/mL (0.0-0.30)
[2017-08-09 21:54] LABS: UREA NITROGEN (BUN) 112 mg/dL (9-23)
[2017-08-09 23:51] VITALS: BP 183/84
[2017-08-10] VITALS (11 sets, daily range): BP systolic 135–180; BP diastolic 65–99
[2017-08-10] MEDS ORDERED: AMLODIPINE BESY10 MG PO (00:26)
[2017-08-10] MEDS ORDERED: DIAZEPAM5 MG PO (00:26)
[2017-08-10] MEDS ORDERED: METOPROLOL TART50 MG PO (00:27)
[2017-08-10] MEDS ORDERED: ESOMEPRAZOLE MA40 MG PO (00:27)
[2017-08-10] MEDS ORDERED: RANITIDINE HCL300 MG PO (00:28)
[2017-08-10] MEDS ORDERED: FLUTICASONE PRO16 GM BOTH NARES (00:52)
[2017-08-10 06:50] LABS: HEMATOCRIT 23.2 % (36.0-46.0); MCHC 32.3 G/DL (30.0-36.0); PLATELET COUNT 280 K/uL (156-360); RBC DIS.WIDTH-CV 19.2 % (11.8-14.6); RBC DIS.WIDTH-SD 60.8 % (39-53); RED BLOOD COUNT 2.68 M/uL (3.80-5.20); WHITE BLOOD COUNT 24.3 K/uL (4.1-10.2)
[2017-08-10 06:51] LABS: HEMOGLOBIN 7.5 G/DL (11.9-15.5); MCV 86.6 FL (83-99)
[2017-08-10 08:46] LABS: TROP-I INTERPRETATION NEGATIVE; TROPONIN-I 0.25 ng/mL (0.0-0.30)
[2017-08-10 08:53] LABS: CHLORIDE 107 MEQ/L (99-109); GFR ESTIMATE (CALCULATED) 26 mL/min/; GLUCOSE 132 mg/dL (70-99); POTASSIUM 5.1 MEQ/L (3.7-5.4); SODIUM 135 MEQ/L (136-147)
[2017-08-10 08:54] LABS: UREA NITROGEN (BUN) 110 mg/dL (9-23)
[2017-08-10 14:21] LABS: HEMATOCRIT 27.5 % (36.0-46.0); HEMOGLOBIN 9.2 G/DL (11.9-15.5); MCV 84.6 FL (83-99)
[2017-08-10 15:09] LABS: TROP-I INTERPRETATION INDETERMINATE; TROPONIN-I 0.31 ng/mL (0.0-0.30)
[2017-08-10 21:46] LABS: HEMATOCRIT 21.4 % (36.0-46.0); HEMOGLOBIN 7.4 G/DL (11.9-15.5); MCV 82.6 FL (83-99)
[2017-08-11] VITALS (12 sets, daily range): BP systolic 147–191; BP diastolic 63–86
[2017-08-11 06:18] LABS: BASOPHIL (%) 0.2 % (0-1); EOSINOPHIL (%) 0.2 % (0-5); HEMATOCRIT 19.7 % (36.0-46.0); IMMATURE GRANULOCYTE (%) 0.7 % (0.0-0.7); LYMPHOCYTE (%) 16.4 % (15-42); MCH 29.6 PG (29.0-34.0); MCV 84.5 FL (83-99); MONOCYTE (%) 7.9 % (3-12); MONOCYTE COUNT 1.4 K/uL (0-0.8); NEUTROPHIL (%) 74.6 % (45-76); NEUTROPHIL COUNT 13.5 K/uL (1.8-6.4); RBC DIS.WIDTH-CV 17.4 % (11.8-14.6); RBC DIS.WIDTH-SD 53.3 % (39-53); RED BLOOD COUNT 2.33 M/uL (3.80-5.20); WHITE BLOOD COUNT 18.1 K/uL (4.1-10.2)
[2017-08-11 06:43] LABS: HEMOGLOBIN 6.9 G/DL (11.9-15.5)
[2017-08-11 06:53] LABS: CHLORIDE 112 MEQ/L (99-109); CREATININE 1.9 MG/DL (0.6-1.3); GFR ESTIMATE (CALCULATED) 27 mL/min/
[2017-08-11 06:58] LABS: GLUCOSE 85 mg/dL (70-99); POTASSIUM 3.8 MEQ/L (3.7-5.4); SODIUM 143 MEQ/L (136-147)
[2017-08-11 06:59] LABS: UREA NITROGEN (BUN) 107 mg/dL (9-23)
[2017-08-11 07:21] LABS: PLAT.SUFFICIENCY ADEQUATE
[2017-08-11 07:48] LABS: PLATELET COUNT 183 K/uL (156-360)
[2017-08-11 14:01] LABS: TROP-I INTERPRETATION INDETERMINATE; TROPONIN-I 0.34 ng/mL (0.0-0.30)
[2017-08-11 15:47] LABS: HEMATOCRIT 25.2 % (36.0-46.0); HEMOGLOBIN 8.6 G/DL (11.9-15.5); MCV 85.1 FL (83-99)
[2017-08-11 20:01] LABS: TROP-I INTERPRETATION INDETERMINATE; TROPONIN-I 0.48 ng/mL (0.0-0.30)
[2017-08-12 01:16] LABS: TROP-I INTERPRETATION INDETERMINATE; TROPONIN-I 0.42 ng/mL (0.0-0.30)
[2017-08-12 04:25] VITALS: BP 178/74
[2017-08-12 05:58] LABS: BASOPHIL (%) 0.3 % (0-1); EOSINOPHIL (%) 5.1 % (0-5); EOSINOPHIL COUNT 0.6 K/uL (0-0.3); HEMATOCRIT 25.3 % (36.0-46.0); HEMOGLOBIN 8.8 G/DL (11.9-15.5); IMMATURE GRANULOCYTE (%) 0.9 % (0.0-0.7); LYMPHOCYTE (%) 20.2 % (15-42); LYMPHOCYTE COUNT 2.4 K/uL (1.0-2.8); MCHC 34.8 G/DL (30.0-36.0); MCV 86.3 FL (83-99); MONOCYTE (%) 9.3 % (3-12); MONOCYTE COUNT 1.1 K/uL (0-0.8); NEUTROPHIL (%) 64.2 % (45-76); NEUTROPHIL COUNT 7.6 K/uL (1.8-6.4); PLATELET COUNT 139 K/uL (156-360); RBC DIS.WIDTH-CV 16.1 % (11.8-14.6); WHITE BLOOD COUNT 11.9 K/uL (4.1-10.2)
[2017-08-12 06:01] LABS: RED BLOOD COUNT 2.93 M/uL (3.80-5.20)
[2017-08-12 06:08] LABS: ALBUMIN 2.4 G/DL (3.2-4.8); CHLORIDE 111 MEQ/L (99-109); POTASSIUM 3.3 MEQ/L (3.7-5.4); SODIUM 136 MEQ/L (136-147); TOTAL BILIRUBIN 0.4 MG/DL (0.0-1.0)
[2017-08-12 06:14] LABS: ALKALINE PHOSPHATASE 42 IU/L (3-129); ALT (GPT) 6 IU/L (3-49); AST (GOT) 13 IU/L (2-34); CREATININE 1.6 MG/DL (0.6-1.3); GFR ESTIMATE (CALCULATED) 33 mL/min/; GLUCOSE 82 mg/dL (70-99); PHOSPHORUS 2.9 mg/dL (2.5-4.9); TOTAL PROTEIN 4.1 G/DL (6.4-8.3); UREA NITROGEN (BUN) 78 mg/dL (9-23)
[2017-08-12 07:50] VITALS: BP 171/86
[2017-08-12 11:02] LABS: MAGNESIUM 2.1 mg/dl (1.3-2.7)
[2017-08-12 11:21] VITALS: BP 168/79
[2017-08-12 16:50] VITALS: BP 117/74
[2017-08-12 19:10] VITALS: BP 162/83
[2017-08-13] VITALS (8 sets, daily range): BP systolic 146–186; BP diastolic 62–93
[2017-08-13 05:08] LABS: BASOPHIL (%) 0.4 % (0-1); BASOPHIL COUNT 0.1 K/uL (0-0.1); EOSINOPHIL (%) 9.5 % (0-5); EOSINOPHIL COUNT 1.3 K/uL (0-0.3); HEMATOCRIT 27.6 % (36.0-46.0); HEMOGLOBIN 9.3 G/DL (11.9-15.5); IMMATURE GRANULOCYTE (%) 0.7 % (0.0-0.7); LYMPHOCYTE (%) 21.2 % (15-42); LYMPHOCYTE COUNT 2.8 K/uL (1.0-2.8); MCH 29.2 PG (29.0-34.0); MCHC 33.7 G/DL (30.0-36.0); MCV 86.8 FL (83-99); MONOCYTE (%) 12.2 % (3-12); MONOCYTE COUNT 1.6 K/uL (0-0.8); NEUTROPHIL COUNT 7.5 K/uL (1.8-6.4); PLATELET COUNT 180 K/uL (156-360); RBC DIS.WIDTH-CV 16.2 % (11.8-14.6); RBC DIS.WIDTH-SD 50.4 % (39-53); RED BLOOD COUNT 3.18 M/uL (3.80-5.20); WHITE BLOOD COUNT 13.4 K/uL (4.1-10.2)
[2017-08-13 05:37] LABS: ALBUMIN 2.5 G/DL (3.2-4.8); ALKALINE PHOSPHATASE 47 IU/L (3-129); ALT (GPT) 8 IU/L (3-49); AST (GOT) 13 IU/L (2-34); CHLORIDE 113 MEQ/L (99-109); CREATININE 1.6 MG/DL (0.6-1.3); GFR ESTIMATE (CALCULATED) 33 mL/min/; GLUCOSE 92 mg/dL (70-99); POTASSIUM 3.9 MEQ/L (3.7-5.4); SODIUM 138 MEQ/L (136-147); TOTAL BILIRUBIN 0.3 MG/DL (0.0-1.0); TOTAL PROTEIN 4.3 G/DL (6.4-8.3); UREA NITROGEN (BUN) 51 mg/dL (9-23)
[2017-08-13 12:51] LABS: APPEARANCE SL.HAZY ((CLEAR)); BILIRUBIN NEGATIVE; BLOOD NEGATIVE; COLOR YELLOW ((YELLOW)); GLUCOSE (STRIP) NEGATIVE; KETONES NEGATIVE; LEUKOCYTES NEGATIVE; NITRITE NEGATIVE; PROTEIN (STRIP) 100; SPECIFIC GRAVITY 1.011 (1.000-1.030); UROBILINOGEN 0.2 MG/DL (0.2-1.0)
[2017-08-13 13:29] LABS: BACTERIA 1+ /HPF; EPITHELIAL CELLS NONE SEEN /HPF; MUCUS NONE SEEN /LPF; RED BLOOD CELLS 0-5 /HPF (0-5); UCUL ADDED? NO; WHITE BLOOD CELLS 0-5 /HPF (0-5)
[2017-08-14 05:51] LABS: BASOPHIL (%) 0.5 % (0-1); BASOPHIL COUNT 0.1 K/uL (0-0.1); EOSINOPHIL (%) 9.6 % (0-5); EOSINOPHIL COUNT 1.2 K/uL (0-0.3); HEMATOCRIT 28.8 % (36.0-46.0); HEMOGLOBIN 9.5 G/DL (11.9-15.5); IMMATURE GRANULOCYTE (%) 0.9 % (0.0-0.7); LYMPHOCYTE (%) 21.5 % (15-42); LYMPHOCYTE COUNT 2.8 K/uL (1.0-2.8); MCH 28.9 PG (29.0-34.0); MCV 87.5 FL (83-99); MONOCYTE (%) 12.3 % (3-12); MONOCYTE COUNT 1.6 K/uL (0-0.8); NEUTROPHIL (%) 55.2 % (45-76); NEUTROPHIL COUNT 7.1 K/uL (1.8-6.4); PLATELET COUNT 198 K/uL (156-360); RBC DIS.WIDTH-CV 16.7 % (11.8-14.6); RED BLOOD COUNT 3.29 M/uL (3.80-5.20); WHITE BLOOD COUNT 12.8 K/uL (4.1-10.2)
[2017-08-14 06:14] LABS: CHLORIDE 113 MEQ/L (99-109); CREATININE 1.5 MG/DL (0.6-1.3); GFR ESTIMATE (CALCULATED) 36 mL/min/; GLUCOSE 80 mg/dL (70-99); POTASSIUM 4.1 MEQ/L (3.7-5.4); SODIUM 138 MEQ/L (136-147); UREA NITROGEN (BUN) 39 mg/dL (9-23)
[2017-08-14 08:00] VITALS: BP 188/88
[2017-08-14 12:00] VITALS: BP 168/88
[2017-08-14 16:00] VITALS: BP 138/83
[2017-08-14 20:40] VITALS: BP 194/90
[2017-08-15 01:24] VITALS: BP 189/89
[2017-08-15 05:16] VITALS: BP 193/91
[2017-08-15 06:43] LABS: BASOPHIL (%) 0.3 % (0-1); EOSINOPHIL COUNT 0.9 K/uL (0-0.3); HEMOGLOBIN 9.3 G/DL (11.9-15.5); IMMATURE GRANULOCYTE (%) 0.8 % (0.0-0.7); LYMPHOCYTE (%) 21.9 % (15-42); LYMPHOCYTE COUNT 3.3 K/uL (1.0-2.8); MCH 28.9 PG (29.0-34.0); MCHC 33.2 G/DL (30.0-36.0); MONOCYTE (%) 12.4 % (3-12); MONOCYTE COUNT 1.9 K/uL (0-0.8); NEUTROPHIL (%) 58.6 % (45-76); NEUTROPHIL COUNT 8.9 K/uL (1.8-6.4); PLATELET COUNT 220 K/uL (156-360); RBC DIS.WIDTH-CV 16.9 % (11.8-14.6); RED BLOOD COUNT 3.22 M/uL (3.80-5.20); WHITE BLOOD COUNT 15.1 K/uL (4.1-10.2)
[2017-08-15 06:52] LABS: CHLORIDE 112 MEQ/L (99-109); CREATININE 1.6 MG/DL (0.6-1.3); GFR ESTIMATE (CALCULATED) 33 mL/min/; GLUCOSE 77 mg/dL (70-99); POTASSIUM 4.2 MEQ/L (3.7-5.4); SODIUM 140 MEQ/L (136-147); UREA NITROGEN (BUN) 38 mg/dL (9-23)
[2017-08-15 08:00] VITALS: BP 180/91
[2017-08-15 12:43] VITALS: BP 140/70
[2017-08-15] MEDS ORDERED: LOPRESSOR25 MG PO (12:56)
[2017-08-15] MEDS ORDERED: AMLODIPINE BESY10 MG PO (12:56)
[2017-08-15] MEDS ORDERED: SERTRALINE HCL50 MG PO (12:57)
[2017-08-15] MEDS ORDERED: NABI650T PO (12:57)
[2017-08-15] MEDS ORDERED: FOLIC ACID1 MG PO (12:58)
[2017-08-15] MEDS ORDERED: Thiamine,Vitamin B1 PO (12:58)
[2017-08-15] MEDS ORDERED: TRAMADOL HCL50 MG PO (12:58)
== END 2017-08-15 16:50 | DRG 378 ==
LOC: EME 20:08 → EDOF 08-10 00:18 → 4EAST 08-10 00:18 → ENRESERV 08-10 00:20 → 4EAST 08-10 02:19 → CANRESERV 08-11 18:49 → ENRESERV 08-11 18:49 → 4EAST 08-11 18:53 → ENRESERV 08-13 15:25 → 4SOUTH 08-13 17:13
PROVIDERS: Emergency Medicine; Family Medicine; Hospitalist; Internal Medicine Gastroenterology; Internal Medicine Nephrology
DX: K26.4 Chronic or unspecified duodenal ulcer with hemorrhage (principal); K22.11 Ulcer of esophagus with bleeding; N28.9 Disorder of kidney and ureter, unspecified; D62 Acute posthemorrhagic anemia; N18.4 Chronic kidney disease, stage 4 (severe); R64 Cachexia; I48.2 Chronic atrial fibrillation; Z89.512 Acquired absence of left leg below knee; K21.9 Gastro-esophageal reflux disease without esophagitis; I73.9 Peripheral vascular disease, unspecified; M19.90 Unspecified osteoarthritis, unspecified site; K44.9 Diaphragmatic hernia without obstruction or gangrene; F32.9 Major depressive disorder, single episode, unspecified; E86.0 Dehydration; E87.2 Acidosis; E16.2 Hypoglycemia, unspecified; I12.9 Hypertensive chronic kidney disease with stage 1 through stage 4 chronic kidney disease, or unspecified chronic kidney disease; R07.89 Other chest pain; Z66 Do not resuscitate; K57.90 Diverticulosis of intestine, part unspecified, without perforation or abscess without bleeding
CPT/HCPCS: 70450; 74176; 80048; 80053; 81003; 82948; 83690; 83735; 84100; 84484; 85014; 85018; 85025; 85027; 85610; 85730; 86850; 86900; 86901; 86920; 87641; 88305; 88342 TC; 93005; 93306; 94799; 99281; 99285; C9113; J0360; J1940; J2270; J2405; J2765; J3411; J7030; J7042; P9016

== ENCOUNTER 2017-12-28 22:22 | Emergency (ER) | payer OTHER ==
[~2017-12-28] VITALS: Ht 165.1 cm; Wt 56.3 kg
[~2017-12-28 22:22] MED LIST changes: +AMLODIPINE BESY10 MG PO; +DIAZEPAM5 MG PO; +ESOMEPRAZOLE MA40 MG PO; +FLUTICASONE PRO16 GM BOTH NARES; +FOLIC ACID1 MG PO; +NABI650T PO; +RANITIDINE HCL300 MG PO; +SERTRALINE HCL50 MG PO; +Thiamine,Vitamin B1 PO
[2017-12-28 23:06] LABS: BASOPHIL (%) 0.5 % (0-1); EOSINOPHIL (%) 3.3 % (0-5); EOSINOPHIL COUNT 0.3 K/uL (0-0.3); HEMATOCRIT 27.6 % (36.0-46.0); IMMATURE GRANULOCYTE (%) 0.2 % (0.0-0.7); LYMPHOCYTE (%) 24.9 % (15-42); LYMPHOCYTE COUNT 2.1 K/uL (1.0-2.8); MCH 26.5 PG (29.0-34.0); MCHC 32.6 G/DL (30.0-36.0); MCV 81.2 FL (83-99); MONOCYTE (%) 10.8 % (3-12); MONOCYTE COUNT 0.9 K/uL (0-0.8); NEUTROPHIL (%) 60.3 % (45-76); NEUTROPHIL COUNT 5.2 K/uL (1.8-6.4); PLATELET COUNT 266 K/uL (156-360); RBC DIS.WIDTH-CV 16.6 % (11.8-14.6); RBC DIS.WIDTH-SD 48.7 % (39-53); WHITE BLOOD COUNT 8.6 K/uL (4.1-10.2)
[2017-12-28] MEDS ORDERED: DOXYCYCLINE HY100 MG PO (23:08)
[2017-12-28 23:15] LABS: CHLORIDE 109 mEq/L (99-109); POTASSIUM 5.1 mEq/L (3.7-5.4); SODIUM 139 mEq/L (136-147)
[2017-12-28 23:17] LABS: GLUCOSE 112 mg/dL (70-99)
[2017-12-28 23:21] LABS: CREATININE 2.5 mg/dL (0.6-1.3); GFR ESTIMATE (CALCULATED) 20 mL/min/; UREA NITROGEN (BUN) 45 mg/dL (9-23)
[2017-12-28 23:22] VITALS: BP 197/100
== END 2017-12-28 23:23 | disposition home or self-care (01) ==
LOC: EME 22:22
DX: L03.115 Cellulitis of right lower limb (principal); I73.9 Peripheral vascular disease, unspecified; S80.811A Abrasion, right lower leg, initial encounter; W22.8XXA Striking against or struck by other objects, initial encounter; Z88.2 Allergy status to sulfonamides
CPT/HCPCS: 80048; 83605; 85025; 99281; 99283

== ENCOUNTER 2018-01-23 11:44 | Inpatient (IN) | payer OTHER ==
[~2018-01-23] VITALS: Ht 157.5 cm; Wt 59.0 kg
[2018-01-23 12:58] LABS: HEMATOCRIT 28.1 % (36.0-46.0); HEMOGLOBIN 9.1 G/DL (11.9-15.5); MCH 26.7 PG (29.0-34.0); MCHC 32.4 G/DL (30.0-36.0); MCV 82.4 FL (83-99); PLATELET COUNT 280 K/uL (156-360); RBC DIS.WIDTH-SD 48.5 % (39-53); RED BLOOD COUNT 3.41 M/uL (3.80-5.20); WHITE BLOOD COUNT 9.2 K/uL (4.1-10.2)
[2018-01-23 13:09] LABS: ALBUMIN 3.1 g/dL (3.2-4.8); CHLORIDE 111 mEq/L (99-109); POTASSIUM 5.2 mEq/L (3.7-5.4); SODIUM 139 mEq/L (136-147)
[2018-01-23 13:12] LABS: GLUCOSE 90 mg/dL (70-99); TOTAL PROTEIN 6.2 g/dL (6.4-8.3)
[2018-01-23 13:14] LABS: TOTAL BILIRUBIN 0.2 mg/dL (0.0-1.0)
[2018-01-23 13:15] LABS: ALKALINE PHOSPHATASE 98 IU/L (3-129)
[2018-01-23 13:16] LABS: CREATININE 2.5 mg/dL (0.6-1.3); GFR ESTIMATE (CALCULATED) 20 mL/min/
[2018-01-23 13:17] LABS: AST (GOT) 16 IU/L (2-34); UREA NITROGEN (BUN) 37 mg/dL (9-23)
[2018-01-23 13:18] LABS: ALT (GPT) 9 IU/L (3-49)
[2018-01-23 13:19] LABS: LIPASE 18 U/L (1.0-51.0)
[2018-01-23 13:41] LABS: APPEARANCE CLEAR ((CLEAR)); BILIRUBIN NEGATIVE; BLOOD NEGATIVE; COLOR STRAW ((YELLOW)); GLUCOSE (STRIP) NEGATIVE; KETONES NEGATIVE; LEUKOCYTES NEGATIVE; NITRITE NEGATIVE; PROTEIN (STRIP) 100; SPECIFIC GRAVITY 1.011 (1.000-1.030); UROBILINOGEN 0.2 MG/DL (0.2-1.0)
[2018-01-23 13:44] LABS: BACTERIA NONE SEEN /HPF; EPITHELIAL CELLS RARE /HPF; MUCUS NONE SEEN /LPF; RED BLOOD CELLS 0-5 /HPF (0-5); UCUL ADDED? NO; WHITE BLOOD CELLS 0-5 /HPF (0-5)
[2018-01-23] MEDS ORDERED: TRAMADOL HCL50 MG PO (15:25)
[2018-01-23] MEDS ORDERED: BACTROBAN OINTM22 GM TP (15:26)
[2018-01-23] MEDS ORDERED: LISINOPRIL10 MG PO (15:26)
[2018-01-23] MEDS ORDERED: HYDROCHLOROTHIA25 MG PO (15:26)
[2018-01-23 18:03] VITALS: BP 185/95
[2018-01-23 20:15] VITALS: BP 192/76
[2018-01-23 23:45] VITALS: BP 167/77
[2018-01-24 05:27] VITALS: BP 158/84
[2018-01-24 06:12] LABS: HEMATOCRIT 28.5 % (36.0-46.0); HEMOGLOBIN 8.9 G/DL (11.9-15.5); MCH 25.5 PG (29.0-34.0); MCHC 31.2 G/DL (30.0-36.0); MCV 81.7 FL (83-99); PLATELET COUNT 265 K/uL (156-360); RBC DIS.WIDTH-CV 15.5 % (11.8-14.6); RBC DIS.WIDTH-SD 46.1 % (39-53); RED BLOOD COUNT 3.49 M/uL (3.80-5.20); WHITE BLOOD COUNT 8.9 K/uL (4.1-10.2)
[2018-01-24 06:20] LABS: CHLORIDE 109 MEQ/L (99-109); CREATININE 2.3 MG/DL (0.6-1.3); GFR ESTIMATE (CALCULATED) 22 mL/min/; GLUCOSE 83 mg/dL (70-99); POTASSIUM 4.9 MEQ/L (3.7-5.4); SODIUM 140 MEQ/L (136-147); UREA NITROGEN (BUN) 30 mg/dL (9-23)
[2018-01-24 08:25] VITALS: BP 186/95
[2018-01-24 11:44] VITALS: BP 176/75
[2018-01-24 14:33] LABS: IRON 33 MCG/DL (35-150); TRANSFERRIN SATUR. 17 % (20-55)
[2018-01-24 14:45] LABS: FOLIC ACID (FOLATE) 20.4 NG/ML (5.0-22.0)
[2018-01-24 14:49] LABS: FERRITIN 13 NG/ML (10-291)
[2018-01-24 16:33] VITALS: BP 199/87
[2018-01-24 18:58] VITALS: BP 160/74
[2018-01-24 23:50] VITALS: BP 179/84
[2018-01-25 05:07] VITALS: BP 136/72
[2018-01-25 05:31] LABS: HEMATOCRIT 27.8 % (36.0-46.0); HEMOGLOBIN 8.7 G/DL (11.9-15.5); MCH 25.4 PG (29.0-34.0); MCHC 31.3 G/DL (30.0-36.0); MCV 81.3 FL (83-99); PLATELET COUNT 250 K/uL (156-360); RBC DIS.WIDTH-CV 15.7 % (11.8-14.6); RBC DIS.WIDTH-SD 46.6 % (39-53); RED BLOOD COUNT 3.42 M/uL (3.80-5.20); WHITE BLOOD COUNT 9.2 K/uL (4.1-10.2)
[2018-01-25 06:00] LABS: C4 COMPLEMENT 29 MG/DL (10-40)
[2018-01-25 06:02] LABS: CHLORIDE 111 MEQ/L (99-109); CREATININE 2.2 MG/DL (0.6-1.3); GFR ESTIMATE (CALCULATED) 23 mL/min/; GLUCOSE 80 mg/dL (70-99); MAGNESIUM 1.6 mg/dl (1.3-2.7); PHOSPHORUS 3.1 mg/dL (2.5-4.9); POTASSIUM 4.2 MEQ/L (3.7-5.4); SODIUM 139 MEQ/L (136-147); UREA NITROGEN (BUN) 33 mg/dL (9-23)
[2018-01-25 07:48] LABS: INTACT PARATHYROID HORMONE 151 pg/mL (10-69)
[2018-01-25 08:00] VITALS: BP 141/71
[2018-01-25 10:44] LABS: HEPATITIS B SURFACE ANTIGEN Nonreactive
[2018-01-25 10:45] LABS: HEPATITIS B SURFACE ANTIBODY Nonreactive; HEPATITIS C ANTIBODY Nonreactive
[2018-01-25 11:54] VITALS: BP 139/67
[2018-01-25 15:25] VITALS: BP 130/74
[2018-01-25 19:30] VITALS: BP 184/86
[2018-01-26 00:28] VITALS: BP 187/92
[2018-01-26 02:35] LABS: UR CREATININE CONCENTRATION 47.8 MG/DL
[2018-01-26 05:04] VITALS: BP 181/90
[2018-01-26 05:34] LABS: HEMATOCRIT 26.4 % (36.0-46.0); HEMOGLOBIN 8.4 G/DL (11.9-15.5); MCH 25.6 PG (29.0-34.0); MCHC 31.8 G/DL (30.0-36.0); MCV 80.5 FL (83-99); PLATELET COUNT 250 K/uL (156-360); RBC DIS.WIDTH-CV 15.9 % (11.8-14.6); RBC DIS.WIDTH-SD 46.8 % (39-53); RED BLOOD COUNT 3.28 M/uL (3.80-5.20); WHITE BLOOD COUNT 9.8 K/uL (4.1-10.2)
[2018-01-26 06:00] LABS: CHLORIDE 111 MEQ/L (99-109); CREATININE 2.1 MG/DL (0.6-1.3); GFR ESTIMATE (CALCULATED) 24 mL/min/; GLUCOSE 84 mg/dL (70-99); MAGNESIUM 1.6 mg/dl (1.3-2.7); POTASSIUM 4.4 MEQ/L (3.7-5.4); SODIUM 139 MEQ/L (136-147); UREA NITROGEN (BUN) 33 mg/dL (9-23)
[2018-01-26 07:44] VITALS: BP 164/74
[2018-01-26 11:19] VITALS: BP 133/60
[2018-01-26 15:38] VITALS: BP 152/66
[2018-01-26 19:15] VITALS: BP 168/78
[2018-01-27] VITALS: BP 160/72
[2018-01-27 04:00] VITALS: BP 162/74
[2018-01-27 05:50] LABS: HEMOGLOBIN 9.2 G/DL (11.9-15.5); MCH 26.1 PG (29.0-34.0); MCHC 31.7 G/DL (30.0-36.0); MCV 82.4 FL (83-99); PLATELET COUNT 278 K/uL (156-360); RBC DIS.WIDTH-CV 16.5 % (11.8-14.6); RBC DIS.WIDTH-SD 48.7 % (39-53); RED BLOOD COUNT 3.52 M/uL (3.80-5.20); WHITE BLOOD COUNT 9.5 K/uL (4.1-10.2)
[2018-01-27 06:18] LABS: CHLORIDE 113 MEQ/L (99-109); CREATININE 2.3 MG/DL (0.6-1.3); GFR ESTIMATE (CALCULATED) 22 mL/min/; GLUCOSE 77 mg/dL (70-99); MAGNESIUM 1.7 mg/dl (1.3-2.7); POTASSIUM 4.4 MEQ/L (3.7-5.4); SODIUM 143 MEQ/L (136-147); UREA NITROGEN (BUN) 30 mg/dL (9-23)
[2018-01-27 07:57] VITALS: BP 171/80
[2018-01-27 12:23] VITALS: BP 130/58
[2018-01-27] MEDS ORDERED: CYCLOBENZAPRINE5 MG PO (13:21)
[2018-01-27] MEDS ORDERED: LABETALOL HCL100 MG PO (13:22)
[2018-01-27] MEDS ORDERED: AMLODIPINE BESY10 MG PO (13:22)
[2018-01-27] MEDS ORDERED: VITAMIN D-32000 UNI2 PO (13:22)
[2018-01-27] MEDS ORDERED: TRAMADOL HCL50 MG PO (15:32)
[2018-01-28 15:11] LABS: URINE TOTAL PROTEIN 88 MG/DL (0-10)
== END 2018-01-27 16:28 | disposition home health service (06) | DRG 683 ==
LOC: EME 11:44 → EDOF 15:43 → ENRESERV 15:50 → 4SOUTH 17:36 → ENRESERV 01-24 10:55 → CANRESERV 01-24 10:55 → 4SOUTH 01-27 16:28
PROVIDERS: Emergency Medicine; Internal Medicine; Physician Assistant
DX: N17.9 Acute kidney failure, unspecified (principal); E86.0 Dehydration; E87.2 Acidosis; I12.9 Hypertensive chronic kidney disease with stage 1 through stage 4 chronic kidney disease, or unspecified chronic kidney disease; N18.3 Chronic kidney disease, stage 3 (moderate); N25.81 Secondary hyperparathyroidism of renal origin; K56.41 Fecal impaction; K52.89 Other specified noninfective gastroenteritis and colitis; R80.9 Proteinuria, unspecified; D50.9 Iron deficiency anemia, unspecified; E55.9 Vitamin D deficiency, unspecified; K21.9 Gastro-esophageal reflux disease without esophagitis; I73.9 Peripheral vascular disease, unspecified; M19.90 Unspecified osteoarthritis, unspecified site; Z89.512 Acquired absence of left leg below knee; Z87.11 Personal history of peptic ulcer disease
CPT/HCPCS: 74018; 74176; 76770; 80048; 80053; 81003; 82306; 82436; 82570; 82607; 82728; 82746; 83540; 83690; 83735; 83970; 84100; 84156; 84300; 84466; 84540; 85027; 86160; 86334; 86335; 86430; 86706; 86803; 87340; 93975; 99281; 99285; G0378; J0360; J0744; J1644; J1756; J2270; J3010; J7030; J7040; J7050; J7120; S0030